=== PATIENT | female | born 1960 | race Caucasian/White ===

== ENCOUNTER 2020-02-23 08:33 | Inpatient (IN) ==
[~2020-02-23 08:33] MED LIST: IPRATROPIUM/ALBUTEROL 3 ML AMPUL.NEB NEB PRN; PREGABALIN 75 MG CAPSULE PO SCH; SCOPOLAMINE 1 PATCH PATCH TOPICAL PRN; ceFAZolin 2 GM in DEXTROSE 5% IN WATER 50 ML IV SCH; oxyCODONE 10 MG TAB.ER.12H PO SCH
[2020-02-23 09:46] LABS: Basophils # (Auto) 0.04 K/mcL (0.00-0.30); Basophils % (Auto) 0.6 % (0.0-2.0); Eosinophils # (Auto) 0.08 K/mcL (0.00-0.70); Eosinophils % (Auto) 1.2 % (0.0-7.0); Hematocrit 31.1 % (34.1-44.9); Lymphocytes # (Auto) 2.35 K/mcL (1.50-4.80); Lymphocytes % (Auto) 36.4 % (15.5-49.0); Mean Cell Volume 86.9 fL (80.0-100.0); Mean Corpuscular HGB Conc 32.2 g/dL (31.0-36.0); Mean Platelet Volume 10.1 fL (7.4-10.4); Monocytes # (Auto) 0.44 K/mcL (0.10-0.90); Monocytes % (Auto) 6.8 % (1.0-12.0); Platelet Count 290 K/mcL (140-440); RBC 3.58 M/mcL (3.59-5.38); WBC 6.5 K/mcL (4.50-11.00)
[2020-02-23 09:53] LABS: Appearance,Urine CLEAR; Bilirubin,Urine NEG (NEG); Color,Urine YELLOW; Culture Indicated,Urine NO; Glucose,Urine (UA) NEGATIVE (NEG); Ketones,Urine NEG (NEG); Leukocyte Esterase,Urine NEG /uL (NEG); Nitrate,Urine NEG (NEG); Protein,Urine NEG (NEG); Specific Gravity,Urine 1.026 (1.000-1.035); Urine Blood NEG mg/dL (<0.03)
[2020-02-23 09:54] LABS: Estimated Average Glucose(eAG) 114 mg/dL; Hemoglobin A1C 5.6 % HGB (4.0-6.0)
[2020-02-23 10:06] LABS: Blood Urea Nitrogen 17 mg/dl (6-20); Calcium 8.8 mg/dl (8.6-10.4); Carbon Dioxide 25 mmol/L (22-30); Chloride 100 mmol/L (96-108); Glomerular Filtration Rate 100; Glucose 100 mg/dL (70-105)
[2020-02-23 10:33] LABS: INR 0.9 (0.9-1.1); Prothrombin Time 12.4 sec (11.9-14.5)
[2020-02-23] MEDS ORDERED: ROCURONIUM 10 MG/ML ML IV ONE (12:08)
[2020-02-23] MEDS ORDERED: KETAMINE 100 MG/ML ML IV ONE (12:08)
[2020-02-23] MEDS ORDERED: ONDANSETRON 4 MG/2 ML VIAL IV ONE (12:08)
[2020-02-23] MEDS ORDERED: DEXAMETHASONE 10 MG/ML VIAL IV ONE (12:08)
[2020-02-23] MEDS ORDERED: HYDROmorphone 1 MG/ML SYRINGE IV ONE (12:08)
[2020-02-23] MEDS ORDERED: MIDAZOLAM 2 MG/2 ML VIAL IV ONE (12:08)
[2020-02-23] MEDS ORDERED: TRANEXAMIC ACID 1,000 MG/10 ML VIAL IV ONE ×2 (12:08→14:36)
[2020-02-23] MEDS ORDERED: GLYCOPYRROLATE 0.2 MG/ML VIAL IV ONE (12:08)
[2020-02-23] MEDS ORDERED: fentaNYL 100 MCG/2 ML VIAL IV ONE (12:08)
[2020-02-23] MEDS ORDERED: PROPOFOL 200 MG/20 ML VIAL IV ONE (12:08)
[2020-02-23] MEDS ORDERED: PHENYLEPHRINE 10 MG/ML VIAL IV ONE (12:08)
[2020-02-23] MEDS ORDERED: LIDOCAINE HCL/PF 100 MG/5 ML SYRINGE IV ONE (12:08)
[2020-02-23] MEDS ORDERED: PROMETHAZINE 25 MG/ML VIAL IV PRN (14:06)
[2020-02-23] MEDS ORDERED: MEPERIDINE 25 MG/ML SYRINGE IV PRN (14:06)
[2020-02-23] MEDS ORDERED: BENZOCAINE/MENTHOL 1 LOZENGE PO PRN ×2 (14:06→14:36)
[2020-02-23] MEDS ORDERED: ACETAMINOPHEN 1,000 MG/100 ML BOTTLE IV ONE (14:06)
[2020-02-23] MEDS ORDERED: IPRATROPIUM/ALBUTEROL 3 ML AMPUL.NEB NEB PRN (14:06)
[2020-02-23] MEDS ORDERED: METHOCARBAMOL 1,000 MG/10 ML VIAL IV PRN (14:06)
[2020-02-23] MEDS ORDERED: HYDROmorphone 0.5 MG/0.5 ML SYRINGE IV PRN (14:06)
[2020-02-23] MEDS ORDERED: fentaNYL 100 MCG/2 ML VIAL IV PRN (14:06)
[2020-02-23] MEDS ORDERED: ONDANSETRON 4 MG/2 ML VIAL IV PRN ×2 (14:06→14:36)
[2020-02-23] MEDS ORDERED: METOPROLOL TARTRATE 5 MG/5 ML VIAL IV PRN (14:06)
[2020-02-23] MEDS ORDERED: LACTATED RINGERS 1,000 ML IV SCH (14:15)
[2020-02-23] MEDS ORDERED: BUPIVACAINE W/EPI 0.5% 50 ML VIAL IJ ONE (14:24)
[2020-02-23] MEDS ORDERED: morphine 4 MG/ML VIAL IV PRN (14:36)
[2020-02-23] MEDS ORDERED: BISACODYL 10 MG SUPP.RECT PR PRN (14:36)
[2020-02-23] MEDS ORDERED: ACETAMINOPHEN 325 MG TABLET PO PRN (14:36)
[2020-02-23] MEDS ORDERED: MAGNESIUM HYDROXIDE 30 ML ORAL.SUSP PO PRN (14:36)
[2020-02-23] MEDS ORDERED: oxyCODONE/APAP 5/325MG TABLET PO PRN (14:36)
[2020-02-23] MEDS ORDERED: POLYETHYLENE GLYCOL 3350 17 GM PACKET PO PRN (14:36)
[2020-02-23] MEDS ORDERED: FLEETS ADULT ENEMA PR PRN (14:36)
--- NOTE | 2020-02-23 14:36 | Brief Operative Note ---
Brief Operative Note Date of procedure: 02/23/20 Pre-op diagnosis: Closed comminuted 4 part head splitting right proximal humerus fracture Post-op diagnosis: same Procedure: Open treatment of right proximal humerus fracture with reverse total shoulder arthroplasty Grafts/Implants: Yes (Wolf reunion fracture stem size 7, std base, +8 poly, 36 2mm ecc 2mm lat) Anesthesia: GETA Findings: severe 4 part head split proximal humerus fracture Complications: none Surgeon: Raphael Machuca Skydiving Instructor: Elan Martins Estimated blood loss (cc): 300 Specimens Removed/Pathology: none sent Condition: stable Disposition: PACU
--- NOTE | 2020-02-23 15:42 | XRay Report ---
CLINICAL INFORMATION: Post-OP Total Shoulder COMPARISON: None. FINDINGS: Right total shoulder prostheses is anatomically aligned. Oblique fracture through the surgical neck is transfixed by the humeral stem. Soft tissue swelling seen as expected. The acromioclavicular joint is normal IMPRESSION: Total shoulder prosthesis anatomically aligned. Interpreted and Authenticated by: Andrey Encarnacion 02/23/20
[2020-02-23] MEDS: 0.9 % SODIUM CHLORIDE 1,000 ML IV SCH (16:06)
[2020-02-23] MEDS ORDERED: SIMVASTATIN 10 MG TABLET PO SCH (21:00)
[2020-02-23] MEDS ORDERED: SENNOSIDES 1 TABLET PO SCH (21:00)
[2020-02-23] MEDS: KETOROLAC 30 MG/ML VIAL IV PRN (21:31)
[2020-02-23] MEDS: ceFAZolin 1 GM VIAL IV SCH (21:32)
[2020-02-23] MEDS: CALCIUM W/VIT D3 500 MG TABLET PO SCH (21:32)
[2020-02-23] MEDS: GLUCOSAMINE SULFATE 1500 MG PO SCH (21:32)
[2020-02-23] MEDS: DOCUSATE SODIUM 100 MG CAPSULE PO SCH (21:32)
[2020-02-24] MEDS: 0.9 % SODIUM CHLORIDE 10 ML SYRINGE IV SCH ×2 (01:44→04:40)
[2020-02-24] MEDS: 0.9 % SODIUM CHLORIDE 1,000 ML IV SCH (04:28)
[2020-02-24] MEDS: ceFAZolin 1 GM VIAL IV SCH (04:40)
[2020-02-24] MEDS: KETOROLAC 30 MG/ML VIAL IV PRN (06:38)
--- NOTE | 2020-02-24 07:25 | Discharge Plan ---
Discharge Instructions - TSA Patient Instructions Total Shoulder Protocol: Leave immobilizer in place except for bathing and ROM. Abduction pillow. Continue to wear sling until seen by physician. Codman Pendulum : These exercises use momentum produced by your body to move your shoulder joint. Bend your knees and shift your weight to your front leg, then back, allowing your arm to swing in the same directions. Using the same technique, alternately shift your weight between your right and left legs, allowing your arm to swing from side to side. These exercises are also performed in counterclockwise and clockwise circular motions. Typically these exercises are performed several times per day, for a set number repetitions or minutes, such as 20 times in a row or 5 minutes at a time. Discharge Plan Patient/Caregiver Discharge Instructions Activity: non-weight bearing Diet: Regular Diet Prescriptions: New acetaminophen-codeine 300-30 mg Tablet 1 tab PO Q6H PRN (Reason: pain) Qty: 30 RF: 0 No Action esomeprazole magnesium [Nexium] 40 mg Capsule,Delayed Release(Dr/Ec) 40 mg PO QDAY RF: 0 fluoxetine [Prozac] 20 mg Capsule 20 mg PO QDAYPC RF: 0 aspirin [Adult Low Dose Aspirin] 81 mg Tablet,Delayed Release (Dr/Ec) 81 mg PO QDAY RF: 0 glucosamine sulfate [Glucosamine] 500 mg Tablet 1,500 mg PO BID RF: 0 calcium carbonate-vitamin D3 [Calcium 500 With D] 500 mg(1,250mg) -400 unit Tablet 1 tab PO BID RF: 0 pravastatin [Pravachol] 20 mg Tablet 20 mg PO QDAY RF: 0 Other Ambulatory Orders: Brace/Splint (ONCE) Location: None Selected Ordered By: Raphael Machuca [facility] [place] - [facility] (Routine) Location: None Selected Ordered By: Raphael Machuca Follow Up Plan Follow up with: Raphael Machuca MD [Physician] - Patient Disposition: Home, Self-Care Discharge Orders: Discharge Order (Routine); Ordered 02/24/20 Ordered By: Raphael Machuca
[2020-02-24] MEDS ORDERED: PANTOPRAZOLE 40 MG TABLET PO SCH (07:30)
--- NOTE | 2020-02-24 07:31 | Operative Note ---
DATE OF OPERATION: 02/23/2020 PREOPERATIVE DIAGNOSIS: Severe comminuted 4-part proximal humerus fracture with head split closed. POSTOPERATIVE DIAGNOSIS: Severe comminuted 4-part proximal humerus fracture with head split closed. PROCEDURE PERFORMED: Open treatment of the left comminuted 4-part proximal humerus fracture with a reverse total shoulder arthroplasty placing a [place] reunion size 7 cemented fracture stem, a standard baseplate with an 8 mm insert on a 36 mm baseplate with a +2 lateralized +2 eccentric 36 mm glenosphere. SURGEON: Raphael Machuca MD CUSHION SPRING ASSEMBLER: Russel Martins PA-C. This provider's expertise and technical skill were required throughout the case. The PA assisted with preoperative coordination, intraoperative retraction, wound closure, dressing and splint application, as well as postoperative documentation and care coordination. ANESTHESIA: General. DRAINS: None. SPECIMENS: Bone fragments which were discarded. BLOOD LOSS: 300 mL COMPLICATIONS: None. POSTOPERATIVE CONDITION: Stable. INDICATIONS FOR SURGERY: A 59-year-old female who last week sustained an injury to her shoulder and had severe pain. She was seen in the ER. X-rays showed a comminuted fracture. CT verified 4-part head split. FINDINGS AT SURGERY: As above. Post implantation showed good overall component position and stability. PROCEDURE IN DETAIL: The patient had been seen preoperatively and informed consent had been obtained after discussion of risks, benefits of surgery. Risks including, but not limited to, bleeding; infection, possibly requiring implant removal and prolonged IV antibiotics; injury to nerves, blood vessels, and other surrounding structures; anesthetic risks, dislocation, weakness, stiffness, pain, possibility of needing further surgery. She understood these risks and wished to proceed. Correct operative site was marked and the patient was taken to the operating room. General anesthesia was induced. She was carefully positioned into the beach chair position and pressure points carefully padded. Right shoulder and upper extremity were carefully prepped and draped in normal sterile fashion and a timeout was performed verifying patient name, operative site, and plan. Ioban was used to cover all skin surfaces and then a standard deltopectoral incision was made with a scalpel through skin and subcutaneous tissue. We continued careful blunt dissection down onto the cephalic vein and dissected this lateral with the deltoid. I bluntly dissected through the deltopectoral interval. IrriSept was irrigated and I then used blunt finger dissection to develop the subdeltoid space. A Trevizo deltoid retractor was placed to then identify the lateral edge of the conjoint tendon and a blue handle retractor placed underneath. The biceps tendon was identified and we opened this along its course. It appeared that this had possibly been tenodesed from her prior surgery. I used an osteotome to complete the fracture through the bicipital groove area to create a lesser tuberosity fragment. I then placed a traction stitch around it with a #2 FiberWire. We then continued dissecting through fractured bone pieces and clotted hematoma. I was able to start working the greater tuberosity fragment free. This did have a portion of the posterior superior humeral head with it. I rongeured the remaining posterior superior humeral head off the greater tuberosity fragment and then placed a traction stitch around it with another #2 FiberWire. I was then able to start dissecting free the humeral head fragment. This was eventually removed and we were able to then start exposing the glenoid. Labrum was excised circumferentially. The guide with a 10 degree cephalic tilt was placed at the inferior margin of the glenoid and a guide pin placed. We then reamed until I had cancellous bone on the inferior half. We did go up to a 36 reamer and then our depth gauge was used to determine our central screw and a 36 baseplate and central screw 25 mm in length was assembled. We irrigated with IrriSept in the joint, after a minute pulse lavaged with saline. I then advanced the base plate down until it was in contact with the glenoid and then the screw was advanced. I then tightened to give compression. The drill was then used to drill our inferior and then superior screws getting bicortical purchase, placing locking screws and then anterior and posterior screws were placed. There is limited bone to work with so the shortest screws were chosen for those. I then chose a few millimeters lateralized with 2 mm eccentricity 36 mm glenoid sphere. We again irrigated with IrriSept, after a minute pulse lavaged with saline. I then placed the eccentricity inferior and impacted the glenosphere until it was fully seated. We then exposed the proximal humerus and then using a hand awl, started reaming down the canal and she did have a very small canal. We stopped at a 6. We went ahead and trialed a 6. Even with the fracture stem trial that allowed expansion at the distal end did not get adequate fixation. I went up to an 8 and I was unable to get this down seated fully, so we then went to a 7, which allowed me to start trialing. I trialled with a standard baseplate and a 2 mm insert. This allowed me to reduce fairly easily, so I did go ahead and raised the stem up a little bit and then retrialed. This had better tension, so I went ahead and opened a size 7 fracture stem. We irrigated the canal with IrriSept, after a minute pulse lavaged with saline. I then placed a cement restrictor and antibiotic Palacos was mixed. We did make two drill holes in the shaft and made a FiberWire loop in the canal and then out through the second hole for a mattress stitch. I then used Palacos gun to inject this down to the distal end and coated some on the smooth portion of the stem and then the stem was inserted with 30 degrees of retroversion at the moustapha that we trialled. We made sure that there was no cement on the porous coating. After positioning, we did not move the arm at all until cement had fully hardened. I then retrialed and this time, I increased to a size 8 insert. This was just barely reducible so we felt this would be good tension for stability. We went ahead and opened a standard baseplate with a +8 polyethylene insert. The stem was irrigated with IrriSept, after a minute pulse lavaged with saline and then we carefully cleaned and dried at the Lr taper and then the baseplate polyethylene construct was impacted. I then reduced the shoulder. It did reduce with very firm tension. I checked range of motion and it was stable. I then began tuberosity repair. I placed one limb from of the greater tuberosity traction stitch around the medial neck and the whole of the stem and then took the suture through the superior anterior hole in the anterior fin and then tied this, reducing the tuberosity down to the lateral proximal humerus. I did place some bone graft fragments from the humeral head into this space. We then took a single limb of the traction stitch from the lesser tuberosity and passed this through the anterior fin inferior hole and then tied this down, which brought the lesser tuberosity down to its near anatomic position and then I took the suture that was through the shaft of the humerus and passed this through both the lesser tuberosity and the greater tuberosity fragments in one right at the bone tendon interface and then tied this to hold these down even better. I internally and externally rotated the arm and this was a stable construct. I then went ahead and irrigated copiously with IrriSept, after a minute copiously with saline. We then amputated the proximal stump of the biceps. At this point, we went to close the deltopectoral interval. It was apparent that the cephalic vein had been transected at some point during the procedure. I went ahead and cauterized this more at the tip and then we used #1 Vicryl running stitch to close the deltopectoral interval. Final IrriSept irrigation was done, after a minute final pulse lavage and 2-0 Monocryl for subcutaneous, shabnam for skin. Xeroform sterile dressings were applied. Arm was placed in a Donjoy abductor immobilizer and the patient was awakened, extubated, and transferred to recovery in satisfactory condition. [id number]:[email or web address] Job ID: [id number] Doc ID: [id number] Raphael Machuca MD
[2020-02-24] MEDS: GLUCOSAMINE SULFATE 1500 MG PO SCH (08:31)
[2020-02-24] MEDS: CALCIUM W/VIT D3 500 MG TABLET PO SCH (08:31)
[2020-02-24] MEDS: DOCUSATE SODIUM 100 MG CAPSULE PO SCH (08:31)
[2020-02-24] MEDS ORDERED: ASPIRIN 81 MG TAB.CHEW PO SCH (09:00)
[2020-02-24] MEDS ORDERED: FLUoxetine HCL 20 MG CAPSULE PO SCH (09:00)
== END 2020-02-24 09:30 | disposition home or self-care (01) | DRG 483 ==
LOC: SUR 08:33 → MEDSUR 08:37
PROVIDERS: ADMIT Orthopaedic Surgery; ATTEND Orthopaedic Surgery